=== PATIENT | female | born 1985 | race Caucasian/White ===

== ENCOUNTER 2019-04-01 02:25 | Emergency (ER) | payer SELFPAY ==
[~2019-04-01] VITALS: Ht 154.9 cm; Wt 65.8 kg
[2019-04-01 02:33] VITALS: Ht 154.9 cm; Wt 65.8 kg
[2019-04-01 03:59] VITALS: BP 110/50
== END 2019-04-01 04:00 | disposition home or self-care (01) ==
LOC: ED 02:25
DX: S60.222A Contusion of left hand, initial encounter (principal); R07.89 Other chest pain; Y04.0XXA Assault by unarmed brawl or fight, initial encounter; Y93.89 Activity, other specified; Y92.89 Other specified places as the place of occurrence of the external cause; Y99.8 Other external cause status
CPT/HCPCS: J1885

== ENCOUNTER 2019-05-28 06:56 | Emergency (ER) | payer OTHER ==
[~2019-05-28] VITALS: Ht 152.4 cm; Wt 72.6 kg
[2019-05-28 07:06] VITALS: Ht 152.4 cm; Wt 72.6 kg
[2019-05-28 08:24] VITALS: BP 124/64
== END 2019-05-28 08:24 | disposition home or self-care (01) ==
LOC: EDBD 06:56 → ED 06:56
DX: S80.01XA Contusion of right knee, initial encounter (principal); W18.30XA Fall on same level, unspecified, initial encounter; Y93.89 Activity, other specified; Y92.89 Other specified places as the place of occurrence of the external cause; Y99.8 Other external cause status
CPT/HCPCS: J1885; Q0092